=== PATIENT | male | born 1970 | race African-American/Black ===

== ENCOUNTER 2018-02-08 13:31 | Emergency (ER) | payer SELFPAY, OTHER, MEDICAID ==
[2018-02-08] MEDS ORDERED: LEVALBUTEROL (NEB) 1.25 MG/0.5 ML AMP (13:44)
[2018-02-08] MEDS ORDERED: ALBUTEROL/IPRATROPIUM (NEB) 3 ML AMP (13:44)
[2018-02-08] MEDS: IPRATROPIUM (NEB) 0.5 MG/2.5 ML AMP INH (13:49)
[2018-02-08] MEDS: LEVALBUTEROL (NEB) 1.25 MG/0.5 ML AMP INH (13:49)
[2018-02-08] MEDS: predniSONE 20 MG TAB PO (13:52)
== END 2018-02-08 15:10 | disposition home or self-care (01) ==
LOC: E/R 13:31
DX: J45.901 Unspecified asthma with (acute) exacerbation (principal); R05 Cough
CPT/HCPCS: 94644; 99284-25

== ENCOUNTER 2018-09-06 14:19 | Emergency (ER) | payer OTHER ==
[2018-09-06] MEDS: ALBUTEROL 0.5% (NEB) 2.5 MG/0.5 ML AMP INH (15:12)
[2018-09-06] MEDS: IPRATROPIUM (NEB) 0.5 MG/2.5 ML AMP INH (15:12)
[2018-09-06] MEDS: METHYLPREDNISOLONE 125 MG INJ IV (15:17)
[2018-09-06] MEDS: LISINOPRIL 10 MG TAB PO (17:21)
[2018-09-06] MEDS: SOD CHLORIDE 0.9% 500 ML IV ×2 (17:22→18:32)
[2018-09-06 18:46] LABS: ADD MAN DIFF? NO
[2018-09-06 18:49] LABS: WHITE BLOOD COUNT 8.2 10^3/ul (4.8-10.8)
[2018-09-06 18:49] LABS: ABNORMAL IP MESSAGE 1; BASOPHILS % 0.4 % (0.0-2.0); EOSINOPHILS % 0.2 % (0.0-7.0); HEMATOCRIT 41.8 % (42.0-52.0); HEMOGLOBIN 13.7 g/dl (14.0-18.0); LYMPHOCYTES # 0.5 10^3/ul (0.8-2.9); LYMPHOCYTES % 5.8 % (15.0-51.0); MEAN CORPUSCULAR HEMOGLOBIN 27.4 pg (29.0-33.0); MEAN CORPUSCULAR HGB CONC 32.8 g/dl (32.0-37.0); MEAN CORPUSCULAR VOLUME 83.6 fl (82.0-101.0); MEAN PLATELET VOLUME 9.5 fl (7.4-10.4); MONOCYTE # 0.3 10^3/ul (0.3-0.9); MONOCYTES % 3.3 % (0.0-11.0); NEUTROPHIL # 7.3 10^3/ul (1.6-7.5); NEUTROPHILS % 89.9 % (39.0-77.0); PLATELET COUNT 211 10^3/UL (140-415); POSITIVE DIFF @See below; RED CELL DISTRIBUTION WIDTH 15.5 % (11.5-14.5)
[2018-09-06 19:08] LABS: ANION GAP 10 (5-13); BLOOD UREA NITROGEN 9 mg/dl (7-20); CALCIUM 9.6 mg/dl (8.4-10.2); CARBON DIOXIDE 27 mmol/L (21-31); CHLORIDE 103 mmol/L (97-110); CREATININE 1.04 mg/dl (0.61-1.24); Estimated GFR > 60 mL/min (>60); GLUCOSE 137 mg/dl (70-220); POTASSIUM 3.6 mmol/L (3.5-5.1); SODIUM 140 mmol/L (135-144)
[2018-09-06 19:33] LABS: TROPONIN-I < 0.012 ng/ml (0.000-0.120)
== END 2018-09-06 20:49 | disposition home or self-care (01) ==
LOC: E/R 14:19
DX: R06.00 Dyspnea, unspecified (principal); I10 Essential (primary) hypertension; R00.0 Tachycardia, unspecified; J45.901 Unspecified asthma with (acute) exacerbation
CPT/HCPCS: 71045; 80048; 84484; 85025; 93005; 94644; 96374; 99285-25

== ENCOUNTER 2018-10-27 13:20 | Emergency (ER) | payer OTHER ==
[2018-10-27] MEDS: LEVALBUTEROL (NEB) 1.25 MG/0.5 ML AMP INH (14:06)
[2018-10-27] MEDS: IPRATROPIUM (NEB) 0.5 MG/2.5 ML AMP INH (14:06)
[2018-10-27] MEDS: METHYLPREDNISOLONE 125 MG INJ IV (14:24)
[2018-10-27 14:25] LABS: ADD MAN DIFF? NO
[2018-10-27 14:40] LABS: WHITE BLOOD COUNT 11.4 10^3/ul (4.8-10.8)
[2018-10-27 14:40] LABS: BASOPHIL # 0.1 10^3/ul (0.0-0.1); BASOPHILS % 0.4 % (0.0-2.0); EOSINOPHILS # 0.2 10^3/ul (0.0-0.5); EOSINOPHILS % 1.3 % (0.0-7.0); HEMATOCRIT 40.6 % (42.0-52.0); HEMOGLOBIN 13.6 g/dl (14.0-18.0); LYMPHOCYTES # 1.1 10^3/ul (0.8-2.9); LYMPHOCYTES % 9.5 % (15.0-51.0); MEAN CORPUSCULAR HGB CONC 33.5 g/dl (32.0-37.0); MEAN CORPUSCULAR VOLUME 83.5 fl (82.0-101.0); MEAN PLATELET VOLUME 9.5 fl (7.4-10.4); MONOCYTE # 1.3 10^3/ul (0.3-0.9); MONOCYTES % 10.9 % (0.0-11.0); NEUTROPHIL # 8.8 10^3/ul (1.6-7.5); NEUTROPHILS % 76.9 % (39.0-77.0); PLATELET COUNT 244 10^3/UL (140-415); RED BLOOD COUNT 4.86 10^6/ul (4.70-6.10)
[2018-10-27 15:00] LABS: ANION GAP 14 (5-13); BLOOD UREA NITROGEN 9 mg/dl (7-20); CALCIUM 9.6 mg/dl (8.4-10.2); CARBON DIOXIDE 26 mmol/L (21-31); CHLORIDE 97 mmol/L (97-110); CREATININE 1.01 mg/dl (0.61-1.24); Estimated GFR > 60 mL/min (>60); GLUCOSE 112 mg/dl (70-220); INR 0.95; POTASSIUM 3.5 mmol/L (3.5-5.1); PROTIME 12.8 Sec (11.9-14.9); SODIUM 137 mmol/L (135-144)
[2018-10-27 15:12] LABS: TROPONIN-I < 0.012 ng/ml (0.000-0.120)
== END 2018-10-27 17:17 | disposition home or self-care (01) ==
LOC: FTE 13:20 → E/R 17:17
DX: J45.901 Unspecified asthma with (acute) exacerbation (principal); R00.0 Tachycardia, unspecified; D72.829 Elevated white blood cell count, unspecified; D64.9 Anemia, unspecified; I10 Essential (primary) hypertension; F17.210 Nicotine dependence, cigarettes, uncomplicated
CPT/HCPCS: 71045; 80048; 83605; 84484; 85025; 85610; 85730; 93005; 94644; 99285-25

== ENCOUNTER 2019-05-21 15:58 | Emergency (ER) | payer OTHER ==
[2019-05-21] MEDS ORDERED: SOD CHLORIDE 0.9% 1,000 ML IV (16:55)
[2019-05-21] MEDS ORDERED: METOCLOPRAMIDE 10 MG INJ IV (17:00)
[2019-05-21 17:23] LABS: ADD UMIC NO; UR ASCORBIC ACID NEGATIVE (NEGATIVE); UR BILIRUBIN (Dip) NEGATIVE (NEGATIVE); UR BLOOD (Dip) NEGATIVE (NEGATIVE); UR CLARITY CLEAR (CLEAR); UR COLOR YELLOW (YELLOW); UR GLUCOSE (Dip) NEGATIVE (NEGATIVE); UR KETONES (Dip) NEGATIVE (NEGATIVE); UR LEUKOCYTE ESTERASE (Dip) NEGATIVE Leu/ul (NEGATIVE); UR NITRITE (Dip) NEGATIVE (NEGATIVE); UR SPECIFIC GRAVITY (Dip) 1.025 (1.003-1.030); UR TOTAL PROTEIN (Dip) NEGATIVE (NEGATIVE); UR UROBILINOGEN (Dip) NEGATIVE (NEGATIVE)
[2019-05-21] MEDS: LIDOCAINE 1% (MPF) 5 ML VIAL INFIL (18:24)
[2019-05-21] MEDS: CEFTRIAXONE 1 GM INJ IM (18:24)
== END 2019-05-21 18:33 | disposition home or self-care (01) ==
LOC: FTE 15:58
DX: N48.89 Other specified disorders of penis (principal); J45.909 Unspecified asthma, uncomplicated; I10 Essential (primary) hypertension
CPT/HCPCS: 76870; 81003; 87086; 87591; 96372; 99285-25